=== PATIENT | female | born 1980 | race Caucasian/White ===

== ENCOUNTER 2016-10-24 10:05 | Emergency (ER) | payer SELFPAY ==
[~2016-10-24] VITALS: Ht 167.6 cm; Wt 77.1 kg
[2016-10-24 10:08] VITALS: BP 147/96
[2016-10-24] MEDS ORDERED: KETOROLAC TROMETHAMINE 60 MG/2 ML INJ. IM ONE (10:15)
[2016-10-24] MEDS ORDERED: ORPHENADRINE CITRATE 60 MG/2 ML VIAL. IM ONE (10:15)
--- NOTE | 2016-10-24 10:16 | PHYS DOC ---
Adult General Chief Complaint Chief Complaint: BACK PAIN OR INJURY HPI HPI Patient is a 36 year old female presents to the emergency department with acute exacerbation of chronic low back pain. She states 2 days ago she had onset of her low back pain which is typical of her back pain. She is using home hydrocodone and Flexeril without relief of symptoms. She denies loss of function lower 70s. Denies loss of bowel or bladder control. He states she's had no urinary symptoms, no abdominal pain. She states that she's had a tubal ligation is not risk for . Review of Systems Review of Systems Constitutional: Denies fever or chills [] Eyes: Denies change in visual acuity, redness, or eye pain [] HENT: Denies nasal congestion or sore throat [] Respiratory: Denies cough or shortness of breath [] Cardiovascular: No additional information not addressed in HPI [] GI: Denies abdominal pain, nausea, vomiting, bloody stools or diarrhea [] : Denies dysuria or hematuria [] Musculoskeletal: low back pain without radiation Integument: Denies rash or skin lesions [] Neurologic: Denies headache, focal weakness or sensory changes [] Endocrine: Denies polyuria or polydipsia [] Current Medications Current Medications Current Medications Medications (Trade) Dose Ordered Sig/Oly Start Time Stop Time Status Last Admin Dose Admin Ketorolac Tromethamine (Toradol Im) 60 mg 1X ONCE 10/24/16 10:15 10/24/16 10:37 DC 10/24/16 10:49 60 MG Orphenadrine Citrate (Norflex) 60 mg 1X ONCE 10/24/16 10:15 10/24/16 10:37 DC 10/24/16 10:49 60 MG Allergies Allergies Allergies Coded Allergies Type Severity Reaction Last Updated Verified Penicillins Allergy Severe CLOSES AIRWAY 10/24/16 Yes Physical Exam Physical Exam Constitutional: Well developed, well nourished, no acute distress, non-toxic appearance. [] HENT: Normocephalic, atraumatic, bilateral external ears normal, oropharynx moist, no oral exudates, nose normal. [] Eyes: PERRLA, EOMI, conjunctiva normal, no discharge. [] Neck: Normal range of motion, no tenderness, supple, no stridor. [] Cardiovascular:Heart rate regular rhythm, no murmur [] Lungs & Thorax: Bilateral breath sounds clear to auscultation [] Abdomen: Bowel sounds normal, soft, no tenderness, no masses, no pulsatile masses. [] Skin: Warm, dry, no erythema, no rash. [] Back: Diffuse tenderness and lumbar region without midline tenderness. Extremities: No tenderness, no cyanosis, no clubbing, ROM intact, no edema, negative straight raise leg test. Neurovascular is intact distally. Her muscle strength is 5/5, DTRs 2 over 4. No saddle anesthesia.[] Neurologic: Alert and oriented X 3, normal motor function, normal sensory function, no focal deficits noted. [] Psychologic: Affect normal, judgement normal, mood normal. [] Current Patient Data Vital Signs Vital Signs Date Time Temp Pulse Resp B/P (MAP) Pulse Ox O2 Delivery O2 Flow Rate FiO2 10/24/16 10:08 98.3 77 22 147/96 (113) 98 Room Air 98.3 Lab Values Laboratory Tests Test 10/24/16 10:30 Urine Collection Type Unknown Urine Color Yellow Urine Clarity Clear Urine pH 6.0 Urine Specific [place] 1.015 Urine Protein Negative mg/dL (NEG-TRACE) Urine Glucose (UA) Negative mg/dL (NEG) Urine Ketones (Stick) Negative mg/dL (NEG) Urine Blood Negative (NEG) Urine Nitrite Negative (NEG) Urine Bilirubin Negative (NEG) Urine Urobilinogen Dipstick 1.0 mg/dL (0.2 mg/dL) Urine Leukocyte Esterase Negative (NEG) Urine RBC 0 /HPF (0-2) Urine WBC 0 /HPF (0-4) Urine Squamous Epithelial Cells Mod /LPF Urine Amorphous Sediment Present /HPF Urine Bacteria Few /HPF (0-FEW) Urine Mucus Mod /LPF EKG EKG [] Radiology/Procedures Radiology/Procedures [] Course & Med Decision Making Course & Med Decision Making She reports her pain is better after injection of Toradol. She'll be discharged home to continue use of her hydrocodone. Will add Flexeril and Advil Dosepak. She is advised to follow up with her pain management physician as previously directed. Return to the emergency Department for new symptoms or concerns or worsening of current condition. Pertinent Labs and Imaging studies reviewed. (See chart for details) [] Dragon Disclaimer Dragon Disclaimer This electronic medical record was generated, in whole or in part, using a voice recognition dictation system. Departure Departure Impression: Primary Impression: Acute exacerbation of chronic low back pain Disposition: HOME, SELF-CARE Condition: STABLE Referrals: ACACIA VU MD (PCP) Patient Instructions: Chronic Back Pain Additional Instructions: Continue home meds, including hydro-codon. Scripts Methylprednisolone (MEDROL) 4 Mg Tab.ds.pk 1 PKG PO UD, #1 PKG Prov: RICHARD SCALES APRN 10/24/16 Cyclobenzaprine Hcl (CYCLOBENZAPRINE HCL) 10 Mg Tablet 1 TAB PO TID, #30 TAB Prov: RICHARD SCALES APRN 10/24/16 RICHARD SCALES [employer] Oct 24, 2016 10:16
[2016-10-24 10:57] LABS: BILIRUBIN,URINE NEGATIVE (NEG); GLUCOSE,URINE NEGATIVE (NEG); NITRITE,URINE NEGATIVE (NEG); PROTEIN,URINE NEGATIVE (NEG-TRACE)
[2016-10-24 11:12] LABS: BACTERIA,URINE FEW /HPF (0-FEW); RBC,URINE 0 /HPF (0-2); SQUAMOUS EPITHELIAL CELL,UR MOD /LPF; WBC,URINE 0 /HPF (0-4)
[2016-10-24] MEDS ORDERED: METH4TAB2 PO (11:28)
[2016-10-24] MEDS ORDERED: CYCL10TA2 PO (11:28)
== END 2016-10-24 11:40 | disposition home or self-care (01) ==
LOC: ER 10:05
DX: G89.29 Other chronic pain (principal); M54.5 Low back pain; Z88.0 Allergy status to penicillin
CPT/HCPCS: 81001; 81025; 96372; 99284; J1885; J2360

== ENCOUNTER 2017-07-03 21:37 | Emergency (ER) | payer OTHER ==
[2017-07-03] MEDS: CYCLOBENZAPRINE 10 MG TABLET. PO (23:48)
[2017-07-03] MEDS: HYDROcodone/APAP 5/325MG 1 TAB TABLET PO (23:48)
== END 2017-07-04 00:13 | disposition home or self-care (01) ==
LOC: ER 07-04 00:13
DX: S63.92XA Sprain of unspecified part of left wrist and hand, initial encounter (principal); M54.5 Low back pain; Z88.0 Allergy status to penicillin; V43.52XA Car driver injured in collision with other type car in traffic accident, initial encounter; Y93.I9 Activity, other involving external motion; Y92.410 Unspecified street and highway as the place of occurrence of the external cause; Y99.8 Other external cause status
CPT/HCPCS: 29125; 72100; 73130; 99284